=== PATIENT | male | born 1990 | race Caucasian/White ===

== ENCOUNTER 2018-03-07 12:02 | Emergency (ER) | payer SELFPAY ==
[~2018-03-07] VITALS: Ht 182.9 cm; Wt 74.8 kg
--- NOTE | 2018-03-07 12:15 | NUR ---
PT AMBULATORY TO ER BED 12 C/O L ELBOW PAIN. DENIES TRAUMA. PT STATES BEEN HURTING FOR A WEEK NOW BUT GOT WORST YESTERDAY. NO DEFORMITY NOTED. AWAITING MD JOHNSON.
[2018-03-07] MEDS ORDERED: IBUP-1953 PO (12:16)
--- NOTE | 2018-03-07 12:26 | NUR ---
DR CHAPMAN AT BEDSIDE FOR EVAL.
[2018-03-07] MEDS ORDERED: HYDROCODONE/APAP 5/325MG 1 EACH TABLET PO ONE (12:30)
[2018-03-07] MEDS ORDERED: HYDROCODONE/APAP 5/325MG 1 EACH TABLET ONE (12:31)
--- NOTE | 2018-03-07 13:48 | NUR ---
Patient discharged to home in stable condition. Written and verbal after care instructions given. Patient verbalizes understanding of instruction.
[2018-03-07 13:51] VITALS: BP 160/80
== END 2018-03-07 13:52 | disposition home or self-care (01) ==
LOC: ER 12:27
DX: S52.125A Nondisplaced fracture of head of left radius, initial encounter for closed fracture (principal); F17.200 Nicotine dependence, unspecified, uncomplicated; X58.XXXA Exposure to other specified factors, initial encounter; Y93.89 Activity, other specified; Y92.89 Other specified places as the place of occurrence of the external cause; Y99.8 Other external cause status
CPT/HCPCS: 73080; 99284; A4606; Z7610